=== PATIENT | female | born 1985 | race Caucasian/White ===

== ENCOUNTER 2016-12-12 06:24 | Inpatient (IN) | payer OTHER ==
[~2016-12-12] VITALS: Ht 154.9 cm; Wt 75.7 kg
[2016-12-12] VITALS (52 sets, daily range): BP systolic 93–162; BP diastolic 41–135; PULSE 50–138; RESP 18; TEMP 97.2–98.8
[~2016-12-12 06:24] MED LIST: CEPH-459 PO; PREN1TAB20 PO
[2016-12-12] MEDS ORDERED: LACTATED RINGER'S 1000 ML INJ 1,000 ML IV SCH (06:51)
[2016-12-12] MEDS ORDERED: LACTATED RINGER'S 1000 ML INJ 1,000 ML IV PRN (06:51)
[2016-12-12] MEDS ORDERED: METHYLERGONOVINE MALEATE 0.2 MG/ML VIAL ONE (06:58)
[2016-12-12] MEDS ORDERED: LIDOCAINE HCL 1% 50 ML VIAL I-DERMAL PRN (07:00)
[2016-12-12] MEDS ORDERED: LIDOCAINE HCL 1% 50 ML VIAL INFIL PRN (07:00)
[2016-12-12] MEDS ORDERED: ONDANSETRON HCL 4 MG/2 ML VIAL IV PRN (07:00)
[2016-12-12] MEDS ORDERED: OXYTOCIN 30 UNITS-500ML PREMIX 500 ML IV ONE (07:00)
[2016-12-12] MEDS ORDERED: SODIUM CHLORID 0.9% 500 ML INJ 500 ML IV PRN (07:00)
[2016-12-12] MEDS ORDERED: CITRIC ACID-SODIUM CITRATE LIQ 30 ML UDC PO SCH (07:00)
[2016-12-12] MEDS ORDERED: MINERAL OIL 10 ML VIAL TOPICAL PRN (07:00)
--- NOTE | 2016-12-12 07:00 | PD ---
HPI Chief Complaint Contractions. Date Seen: Dec 12, 2016 (Lisa Bain MD R2) Travel History International Travel<30 Days: No Contact w/Intl Traveler<30Days: No (Lisa Bain MD R2) History of Present Illness HPI Patient is a 31-year-old at 38-1/7 weeks gestation who presents today for contractions. Contractions started about 11:00 last night and became progressively more frequent and strong. At 4 this morning, the contractions were 24 minutes apart. She also noted some vaginal bleeding. She denies any gush or leaking of fluid. No other vaginal discharge. Positive movement. No complications during . (Lisa Bain MD R2) History Past Medical History Medical History: Denies Significant Hx (Lisa Bain MD R2) Obstetric History Obstetric History s/p term x 2, 2007 delivery complicated by shoulder dystocia, 2010 delivery complicated by hemorrhage (Lisa Bain MD R2) Past Surgical History Surgical History: No Previous Surgery (Lisa Bain MD R2) Family History Family History: Negative (Lisa Bain MD R2) Social History Alcohol Use: No Tobacco Use: No Substance Abuse: No (Lisa Bain MD R2) Allergies-Medications (Allergen,Severity, Reaction): Coded Allergies: Amoxicillin (Verified Allergy, Severe, Rash, 12/06/16) Bactrim (Verified Allergy, Severe, LIPS SWELL AND HIVES, 12/06/16) Penicillin (Verified Allergy, Severe, RASH, 12/06/16) Home Meds Reported Medications Vit W/ Ferrous Fumara ( Multi +Dha 27-0.8-228 mg)1 Cap Cap1 Tab PO DAILY 12/12/16 Discontinued Scripts Cephalexin (Keflex)250 Mg [id number] Mg PO Q6H #28 CAP Ref 0 Prov:[place] ReneeP 12/06/16 W/O Vit A W/ Fe Carbonyl (Citranatal Rx)27-1 Mg Tab1 Tab PO DAILY #30 TAB Ref 11 Prov:[place] ReneeP 05/26/16 Cephalexin (Keflex)500 Mg [id number] Mg PO Q12H #14 CAP Ref 0 Prov:Sonam Taylor CNM ESTATE PLANNING COUNSELOR 11/24/16 Review of Systems Except as stated in HPI: all other systems reviewed are Neg General / Constitutional: No: Fever, Chills Eyes: No: Blurred Vision, Visual changes HENT: No: Headaches Cardiovascular: No: Chest Pain or Discomfort Respiratory: No: Short of Breath Gastrointestinal: No: Nausea, Abdominal Pain Genitourinary: Pelvic Pain, Vaginal Bleeding, No: Discharge Musculoskeletal: No: Edema Neurologic: No: Headache Psychiatric: No: Substance Abuse (Lisa Bain MD R2) Physical Exam Narrative GENERAL: Well-nourished, well-developed patient. SKIN: Warm and dry. HEAD: Normocephalic and atraumatic. EYES: No scleral icterus. No injection or drainage. ENT: No nasal drainage noted. Mucous membranes pink. Airway patent. NECK: Supple, trachea midline. No JVD. CARDIOVASCULAR: Regular rate and rhythm without murmurs, gallops, or rubs. RESPIRATORY: Breath sounds equal bilaterally. No accessory muscle use. ABDOMEN/GI: Abdomen soft, non-tender, bowel sounds present, no rebound, no guarding Gravid to 38 weeks size GENITOURINARY: External Genitalia: intact and normal in appearance BUS glands: normal Cervix: midposition Dilatation: 7 Effacement: 90 Station: -1 Presentation: vertex Membranes: bulging Uterine Contractions: q2-3min FHT's: Category: I Baseline: 150 Reactive:+ Variability: moderate Decels: none EXTREMITIES: No cyanosis or edema. BACK: Nontender without obvious deformity. No CVA tenderness. NEUROLOGICAL: Awake and alert. Motor and sensory grossly within normal limits. Normal speech. (Lisa Bain MD R2) Data Data Vital Signs Reviewed: Yes Orders Ob (2e) Additional Admit Info (12/12/16 06:51) Vital Signs (Adult) .ON ADMISSION (12/12/16 06:51) ^ Labor Status (12/12/16 06:51) ^ Non Stress Test (12/12/16 06:51) ^ Hydration (12/12/16 06:51) (Lisa Bain MD R2) MDM Medical Record Reviewed: Yes Narrative Course / MDM 31 year old at 38-1/7 weeks gestation. 1. IUP- Category I tracing, reassuring. 2. Admit for labor- patient with history of shoulder dystocia and hemorrhage. 3. Patient desires epidural 4. GBS negative dw Dr. Saldana (Lisa Bain MD R2) Addendum Remarks I rounded on the patient. I rounded with the resident. I reviewed the resident' s assessment and plan of care for this patient. I am in agreement with the plan of care for this patient. (Triny Orellana MD) Lisa Bain MD R2 Dec 12, 2016 06:59 Triny Orellana MD Dec 12, 2016 07:52
[2016-12-12] MEDS ORDERED: SODIUM CHLOR 0.9% 1000 ML INJ 1,000 ML IV PRN (07:11)
[2016-12-12] MEDS ORDERED: fentaNYL 2MCG-BUPIV 0.125% INJ 100 ML ONE (07:13)
[2016-12-12] MEDS ORDERED: PRENCAP10 PO (07:22)
[2016-12-12 07:23] LABS: AUTOMATED NEUTROPHIL # 9.1 TH/MM3 (1.8-7.7); BASOPHIL % 0.2 % (0.0-2.0); EOSINOPHIL # 0.1 TH/MM3 (0-0.4); EOSINOPHIL % 0.6 % (0.0-4.0); HEMATOCRIT 35.9 % (35.0-46.0); HEMO FLAGS DIFF FINAL; LYMPH % 13.5 % (9.0-44.0); LYMPHOCYTE # 1.6 TH/MM3 (1.0-4.8); MEAN CELL VOLUME 83.2 FL (80.0-100.0); MEAN CORPUSCULAR HEMOGLOBIN 28.4 PG (27.0-34.0); MEAN CORPUSCULAR HGB CONC 34.2 % (32.0-36.0); MONO % 6.5 % (0.0-8.0); NEUT % 79.2 % (16.0-70.0); PLATELET COUNT 171 TH/MM3 (150-450); RED BLOOD COUNT 4.32 MIL/MM3 (4.00-5.30); WHITE BLOOD COUNT 11.5 TH/MM3 (4.0-11.0)
[2016-12-12 08:18] LABS: BLOOD, URINE NEG (NEG); GLUCOSE,URINE NEG (NEG); KETONE, URINE NEG (NEG); NITRITE,URINE NEG (NEG); URINE COLOR YELLOW (YELLW/STRAW)
[2016-12-12 08:29] LABS: BACTERIA, URINE RARE /hpf; COMMENT (UR) CULT NOT INDICATED; CULTURE IF INDICATED CULT NOT INDICATED; SQUAMOUS EPITHELIAL CELL URINE 0-5 /hpf (0-5)
[2016-12-12] MEDS ORDERED: ACETAMINOPHEN 325 MG TAB PO PRN ×2 (09:15→11:45)
[2016-12-12] MEDS ORDERED: fentaNYL 2MCG-BUPIV 0.125% 100 ML EPIDURAL SCH (09:30)
[2016-12-12] MEDS ORDERED: NO SYSTEM NARCOTICS PRN (09:30)
[2016-12-12] MEDS ORDERED: ePHEDrine/NS 25 MG/5 ML SYR IV PRN (09:30)
[2016-12-12] MEDS ORDERED: DO NOT ADMINISTER ANTICOAGULANTS PRN (09:30)
--- NOTE | 2016-12-12 09:40 | PD.LABORPN ---
Subjective Subjective Patient is resting comfortably in bed with epidural in place. Objective Vital Signs Vital Signs Date Time Temp Pulse Resp B/P Pulse Ox O2 Delivery O2 Flow Rate FiO2 12/12/16 09:15 56 93/57 12/12/16 09:08 63 18 95/51 12/12/16 09:05 82 12/12/16 09:01 76 12/12/16 08:46 59 116/65 12/12/16 08:30 65 115/64 12/12/16 08:16 65 114/65 12/12/16 08:06 66 119/66 12/12/16 08:01 70 126/68 12/12/16 07:56 66 118/67 12/12/16 07:54 59 128/70 12/12/16 07:52 59 132/103 12/12/16 07:50 71 12/12/16 07:46 98 140/74 12/12/16 07:45 79 12/12/16 07:42 71 12/12/16 07:40 88 12/12/16 07:36 115 111/91 12/12/16 07:35 72 12/12/16 07:31 65 95/80 12/12/16 07:30 76 12/12/16 07:28 82 123/67 12/12/16 07:26 129 162/135 12/12/16 07:25 89 12/12/16 07:21 70 125/95 12/12/16 07:20 66 12/12/16 07:17 65 136/86 12/12/16 07:15 68 12/12/16 07:13 18 12/12/16 07:05 59 119/66 Objective Pelvic Exam: Cervix: midposition Dilatation: 9 Effacement: 100 Station: -1 Presentation: vertex Membranes: bulging Uterine Contractions: q2-4min FHT's: Category: I Baseline: 142 Reactive: + Variability: moderate Decels: none Assessment/Plan Assessment and Plan 31 year old at 38-1/7 weeks gestation. 1. IUP- Category I tracing, reassuring. 2. Labor- patient with history of shoulder dystocia and hemorrhage. Labor progressing, cervical change noted. 3. Epidural for pain control. 4. GBS negative. Lisa Monteiro Dr., MD R2 Dec 12, 2016 09:40
--- NOTE | 2016-12-12 11:44 | PD.OB.DELI ---
Delivery Date: Dec 12, 2016 Anesthesia: Epidural Episiotomy: None Vaginal Delivery: Normal Presentation: Occiput anterior Nuchal Cord: x1 Delayed cord clamping (45 sec): Yes : Male One Minute : 8 Five Minute : 8 Weight: 3890g Placenta: Spontaneous delivery, Intact, 3 vessel cord Laceration: No lacerations Additional Information EBL 250mL Supervised by Dr. Barnes (Lisa Bain MD R2) Attestation I was present and directly supervised the delivery procedure which was performed without complications by Dr. Bain, PGY2. (Tete Barnes MD) Lisa Bain MD R2 Dec 12, 2016 11:44 Tete Barnes MD Dec 12, 2016 11:58
[2016-12-12] MEDS ORDERED: ALUMINUM/MAGNESIUM/SIMETH 30 ML CUP PO PRN (11:45)
[2016-12-12] MEDS ORDERED: ZOLPIDEM TARTRATE 5 MG TAB PO PRN (11:45)
[2016-12-12] MEDS ORDERED: WITCH HAZEL 50%/GLYCERIN 12.5% 40 PAD JAR TOPICAL PRN (11:45)
[2016-12-12] MEDS ORDERED: ONDANSETRON ODT 4 MG TAB PO PRN (11:45)
[2016-12-12] MEDS ORDERED: BENZOCAINE 20% TOPICAL SPRAY 60 ML CAN TOPICAL PRN (11:45)
[2016-12-12] MEDS ORDERED: SODIUM CHLORIDE 0.9% FLUSH 10 ML FLUSH IV FLUSH PRN (11:45)
[2016-12-12] MEDS: IBUPROFEN 600 MG TAB PO PRN ×2 (12:59→20:34)
[2016-12-12] MEDS: oxyCODONE/ACETAMINOPHEN 5 MG/325 MG TAB PO PRN ×2 (15:58→20:34)
[2016-12-12] MEDS ORDERED: DIPHTH/TETANUS/ACEL PERTUSSIS (BOOSTER) 0.5 ML VIAL/PFS IM ONE (16:00)
[2016-12-12] MEDS ORDERED: MEASLES, MUMPS, RUBELLA VACCINE 0.5 ML VIAL SQ ONE (16:00)
[2016-12-12] MEDS: DOCUSATE SODIUM 50 MG/SENNA 8.6 MG TAB PO PRN (20:35)
[2016-12-12] MEDS ORDERED: SODIUM CHLORIDE 0.9% FLUSH 10 ML FLUSH IV FLUSH SCH (21:00)
[2016-12-13] MEDS: oxyCODONE/ACETAMINOPHEN 5 MG/325 MG TAB PO PRN ×5 (00:39→19:56)
[2016-12-13] MEDS: IBUPROFEN 600 MG TAB PO PRN ×4 (04:29→22:28)
--- NOTE | 2016-12-13 06:56 | HHI.OB ---
Subjective Post Day: 1 Remarks day # 1, delivered at 1121 am on 12/12. AFVSS overnight. Decreased lochia, had a clot passed early in the day yesterday and none since. Denies dysuria. No breast tenderness. her son without difficulty. Wants to go home today-states she has two kids at home she would like to get to. Appetite good. No nausea or vomiting. Positive flatus/bowel movement. Ambulating well. Denies calf pain or shortness of breath. Otherwise, she is doing well this morning and has no other complaints. (Ashley Gill MD R1) Objective Vitals/I&O Vital Signs Date Time Temp Pulse Resp B/P Pulse Ox O2 Delivery O2 Flow Rate FiO2 12/12/16 13:30 98.8 61 18 116/67 12/12/16 13:00 98.2 12/12/16 12:45 73 110/77 12/12/16 12:36 18 12/12/16 12:34 98/58 12/12/16 12:32 82 12/12/16 12:23 18 12/12/16 12:15 68 95/80 12/12/16 12:15 61 110/73 12/12/16 12:12 18 12/12/16 12:01 82 95/80 12/12/16 11:57 68 112/75 12/12/16 11:53 97.2 12/12/16 11:53 98.4 12/12/16 11:48 18 12/12/16 11:32 138 142/97 12/12/16 11:17 131 111/41 12/12/16 11:13 57 113/48 12/12/16 11:02 59 113/41 12/12/16 10:46 50 98/56 12/12/16 10:31 70 96/72 12/12/16 10:16 63 109/67 12/12/16 10:00 57 108/64 12/12/16 09:45 54 107/63 12/12/16 09:31 60 111/71 12/12/16 09:15 56 93/57 12/12/16 09:08 63 18 95/51 12/12/16 09:05 82 12/12/16 09:01 76 12/12/16 08:46 59 116/65 12/12/16 08:30 65 115/64 12/12/16 08:16 65 114/65 12/12/16 08:06 66 119/66 12/12/16 08:01 70 126/68 12/12/16 07:56 66 118/67 12/12/16 07:54 59 128/70 12/12/16 07:52 59 132/103 12/12/16 07:50 71 12/12/16 07:46 98 140/74 12/12/16 07:45 79 12/12/16 07:42 71 12/12/16 07:40 88 12/12/16 07:36 115 111/91 12/12/16 07:35 72 12/12/16 07:31 65 95/80 12/12/16 07:30 76 12/12/16 07:28 82 123/67 12/12/16 07:26 129 162/135 12/12/16 07:25 89 12/12/16 07:21 70 125/95 12/12/16 07:20 66 12/12/16 07:17 65 136/86 12/12/16 07:15 68 12/12/16 07:13 18 12/12/16 07:05 59 119/66 Objective Remarks GENERAL: Well-nourished, well-developed female. CARDIOVASCULAR: Regular rate and rhythm without murmurs, gallops, or rubs. RESPIRATORY: Breath sounds equal bilaterally. No accessory muscle use. ABDOMEN/GI: Abdomen soft, mildly tender to palpation at lower abdomen. Fundus: Firm, non-tender at umbilicus. GENITOURINARY: Light to moderate bleeding. EXTREMITIES: No cyanosis or edema, non-tender, without signs of DVT. Medications and IVs Current Medications Medications (Trade) Dose Ordered Sig/Roshni Route Start Time Stop Time Status Last Admin (NS Flush) 2 ml BID IV FLUSH 12/12/16 21:00 (NS Flush) 2 ml UNSCH PRN IV FLUSH 12/12/16 11:45 (Tylenol) 650 mg Q4H PRN PO 12/12/16 11:45 (Motrin) 600 mg Q6H PRN PO 12/12/16 11:45 12/13/16 04:29 (Percocet 5-325 Mg) 1 tab Q4H PRN PO 12/12/16 11:45 12/13/16 04:29 (Percocet 5-325 Mg) 2 tab Q4H PRN PO 12/12/16 11:45 (Americaine 20% Top Spr) 1 spray Q4H PRN TOPICAL 12/12/16 11:45 (Tucks Pads) 1 applic QID PRN TOPICAL 12/12/16 11:45 (Ca-Colace) 2 tab Q12H PRN PO 12/12/16 11:45 12/12/16 20:35 (Ambien) 5 mg HS PRN PO 12/12/16 11:45 (Mag-Al Plus Susp Liq) 15 ml Q8H PRN PO 12/12/16 11:45 (Zofran Odt) 4 mg Q6H PRN PO 12/12/16 11:45 (Ashley Gill MD R1) Assessment/Plan Problem List: (1) Intrauterine normal (2) Term delivered vaginally, current hospitalization Assessment and Plan 31 y/o female who is PPD]# 1 s/p . -Continue routine care. -Percocet and Motrin PRN pain. -Encouraged OOB. Advised pelvic rest for 6 wks. -Re: ctrl, she is undecided. -Anticipate discharge tomorrow. JOANNA Barnes (Ashley Gill MD R1) Attending Attestation The exam, history, and the medical decision-making described in the above note were completed with the assistance of the resident provider. I reviewed and agree with the findings presented. I attest that I had a [id number] encounter with the patient on the same day, and personally performed and documented my assessment and findings in the medical record. (Tete Barnes MD) Ashley Gill MD R1 Dec 13, 2016 06:56 Tete Barnes MD Dec 13, 2016 08:30
[2016-12-13] MEDS: DOCUSATE SODIUM 50 MG/SENNA 8.6 MG TAB PO PRN (10:00)
[2016-12-13 19:20] VITALS: BP 126/67; PULSE 78; RESP 20; TEMP 97.9
[2016-12-13 21:20] VITALS: BP 126/67; PULSE 78; RESP 20; TEMP 97.9
[2016-12-14] MEDS: oxyCODONE/ACETAMINOPHEN 5 MG/325 MG TAB PO PRN ×3 (04:44→09:52)
[2016-12-14] MEDS: IBUPROFEN 600 MG TAB PO PRN ×2 (04:44→09:52)
--- NOTE | 2016-12-14 06:58 | HHI.OB ---
Subjective Post Day: 2 Remarks day # 2, delivered at 1121 am on 12/12. AFVSS overnight. She has mild pain in the lower abdomen with walking. Decreased lochia. Denies dysuria. No breast tenderness. her son without difficulty. Wants to go home today but not without baby. Appetite good. No nausea or vomiting. Positive flatus/bowel movement. Ambulating well. Denies calf pain or shortness of breath. Otherwise, she is doing well this morning and has no other complaints. Objective Vitals/I&O Vital Signs Date Time Temp Pulse Resp B/P Pulse Ox O2 Delivery O2 Flow Rate FiO2 12/13/16 21:20 97.9 78 20 126/67 12/13/16 19:20 78 20 126/67 12/13/16 19:20 97.9 Objective Remarks GENERAL: Well-nourished, well-developed female. CARDIOVASCULAR: Regular rate and rhythm without murmurs, gallops, or rubs. RESPIRATORY: Breath sounds equal bilaterally. No accessory muscle use. ABDOMEN/GI: Abdomen soft, not tender to palpation at lower abdomen. Fundus: Firm, non-tender below umbilicus. GENITOURINARY: Light to moderate bleeding. EXTREMITIES: No cyanosis or edema, non-tender, without signs of DVT. Medications and IVs Current Medications Medications (Trade) Dose Ordered Sig/Roshni Route Start Time Stop Time Status Last Admin (NS Flush) 2 ml BID IV FLUSH 12/12/16 21:00 (NS Flush) 2 ml UNSCH PRN IV FLUSH 12/12/16 11:45 (Tylenol) 650 mg Q4H PRN PO 12/12/16 11:45 (Motrin) 600 mg Q6H PRN PO 12/12/16 11:45 12/14/16 04:44 (Percocet 5-325 Mg) 1 tab Q4H PRN PO 12/12/16 11:45 12/13/16 04:29 (Percocet 5-325 Mg) 2 tab Q4H PRN PO 12/12/16 11:45 12/14/16 04:44 (Americaine 20% Top Spr) 1 spray Q4H PRN TOPICAL 12/12/16 11:45 (Tucks Pads) 1 applic QID PRN TOPICAL 12/12/16 11:45 (Ca-Colace) 2 tab Q12H PRN PO 12/12/16 11:45 12/13/16 10:00 (Ambien) 5 mg HS PRN PO 12/12/16 11:45 (Mag-Al Plus Susp Liq) 15 ml Q8H PRN PO 12/12/16 11:45 (Zofran Odt) 4 mg Q6H PRN PO 12/12/16 11:45 Assessment/Plan Problem List: (1) Intrauterine normal (2) Term delivered vaginally, current hospitalization Assessment and Plan 31 y/o female who is PPD# 2 s/p . -Continue routine care. -Tylenol and Motrin PRN pain. -Encouraged OOB. Advised pelvic rest for 6 wks. -Re: ctrl, she is undecided. -Anticipate discharge tomorrow. JOANNA Kearney Discharge Planning Discharge today Ashley Gill MD R1 Dec 14, 2016 06:58
[2016-12-14] MEDS ORDERED: IBUP-232 PO (06:59)
[2016-12-14] MEDS ORDERED: ACET1TAB86 PO (06:59)
--- NOTE | 2016-12-14 07:00 | HHI.DCPOC ---
Discharge Care Plan Diagnosis: (1) Term delivered vaginally, current hospitalization (2) Intrauterine normal Report Symptoms to Your Doctor -Temperature above 100.5 degrees -Redness, of incision or excessive or foul smelling drainage -Unusual pain or calf pain -Increased vaginal bleeding -Painful or difficulty urinating -Feelings of extreme sadness or anxiety after 2 weeks Goals to Promote Your Health * To prevent worsening of your condition and complications * To maintain your health at the optimal level Directions to Meet Your Goals Take your medications as prescribed Follow your dietary instruction Follow activity as directed Ensure plenty of rest for recovery Drink fluids for hydration Keep your appointments as scheduled Take your immunizations and boosters as scheduled If your symptoms worsen call your PCP, if no PCP go to Urgent Care Center or Emergency Room Smoking is Dangerous to Your Health. Avoid second hand smoke Call the 24-hour crisis hotline for domestic abuse at Ashley Gill MD R1 Dec 14, 2016 07:00
[2016-12-14 08:00] VITALS: BP 122/68; PULSE 74; RESP 18; TEMP 98.4
[2016-12-14] MEDS: DOCUSATE SODIUM 50 MG/SENNA 8.6 MG TAB PO PRN (09:52)
[2016-12-20] MEDS ORDERED: AUGM500T7 PO (16:35)
[2016-12-20] MEDS ORDERED: IBUP800T23 PO (16:43)
== END 2016-12-14 13:32 | disposition home or self-care (01) | DRG 775 ==
LOC: HOBED 06:24 → H2EB 06:53 → H1EA 13:09
PROVIDERS: ADMIT Obstetrics & Gynecology; ATTEND Obstetrics & Gynecology
PROC: 10E0XZZ Delivery of Products of Conception, External Approach (ICD-10-PCS; principal; 2016-12-12)
DX: O69.81X0 Labor and delivery complicated by cord around neck, without compression, not applicable or unspecified (principal); Z37.0 Single live birth; Z3A.38 38 weeks gestation of pregnancy
CPT/HCPCS: 81001; 85025; 90715; 99285; J2210; J7120

== ENCOUNTER 2017-09-11 19:34 | Emergency (ER) | payer OTHER ==
[~2017-09-11] VITALS: Ht 157.5 cm; Wt 77.7 kg
[~2017-09-11 19:34] MED LIST changes: +AZIT500T2 PO; -CEPH-459 PO; +PREN1CAP17 PO; -PREN1TAB20 PO
[2017-09-11 19:38] VITALS: BP 126/58; PULSE 87; RESP 18; TEMP 97.8; O2SAT 97
[2017-09-11] MEDS ORDERED: FOLI400T PO (20:50)
[2017-09-11] MEDS ORDERED: CARB6.5S5 LEFT EAR (21:48)
[2017-09-11] MEDS ORDERED: AZIT250T3 PO (21:48)
--- NOTE | 2017-09-11 22:09 | PD ---
HPI Chief Complaint: Cold / Flu Symptoms Time Seen by Provider: 20:43 Travel History International Travel<30 days: No Contact w/Intl Traveler<30days: No Traveled to known affect area: No History of Present Illness HPI 32-year-old female that presents to the ED for evaluation of cold like symptoms. Per patient she is about 26 weeks . She has had no issues with the parents and she feels the baby move. Per patient she has no vaginal discharge. Per patient isn't having sore throat and congestion and body aches. She's had chills. Low-grade fever per patient. No urinary symptoms. No back pain. Has not taken anything for this. Discomfort for patient is 4 out of 10 mainly on the body. Again no problems with per patient. PFSH Past Medical History Anemia: Yes Blood Disorders: No Depression: Yes Cancer: No Cardiovascular Problems: No Chemotherapy: No Diminished Hearing: No Endocrine: No Gastrointestinal Disorders: No Genitourinary: No Immune Disorder: No Musculoskeletal: Yes (Chronic back & neck pain) Psychiatric: No Respiratory: No Immunizations Current: Yes Radiation Therapy: No Seizures: Yes (R/T cocaine use) Tetanus Vaccination: < 5 Years Influenza Vaccination: No ?: LMP: 09-17 Menopausal: No : 3 Para: 2 : 1 Past Surgical History Surgical History: No Previous Surgery AICD: No Joint Replacement: No Pacemaker: No Other Surgery: No Social History Alcohol Use: No Tobacco Use: No Substance Use: No Allergies-Medications (Allergen,Severity, Reaction): Coded Allergies: amoxicillin (Unverified Allergy, Severe, Rash, 09/11/17) penicillin G (Unverified Allergy, Severe, RASH, 09/11/17) sulfamethoxazole (Unverified Allergy, Severe, LIPS SWELL AND HIVES, 09/11/17 ) trimethoprim (Unverified Allergy, Severe, LIPS SWELL AND HIVES, 09/11/17) Reported Meds & Prescriptions Reported Meds & Active Scripts Active Debrox Otic Drops (Carbamide Peroxide Otic Drops) 6.5% Soln 5-10 Drop LEFT EAR BID PRN up to 4 days. Azithromycin 250 Mg Tab 250 Mg PO DIRECTED Take 2 tabs (500 mg) on day 1 then 1 tab daily x 4 days. Prenate Pixie 10-0.6-0.4-200 mg ( W/O A W/ Fe Asparto G) 10 Mg Iron-1 Mg -200 Mg Cap 1 Cap PO DAILY Reported Folic Acid 0.4 Mg Tab 400 Mcg PO DAILY Physical Exam Narrative GENERAL: Well-nourished, well-developed patient in no apparent distress. SKIN: Warm and dry. HEAD: Atraumatic. Normocephalic. EYES: Pupils equal and round reactive to light and accommodation. No scleral icterus. No injection or drainage. ENT: No nasal bleeding or discharge. Mucous membranes pink and moist. TMs are clear with no sign of infection or perforation. No mastoid tenderness. Ear canals are intact bilaterally. No lymphadenopathy. Nostril mucosa is red and moist with clear mucus noted. No sinus tenderness to palpation noted. Tonsils are not enlarged or swollen. No ulvua Deviation. Tongue is midline. NECK: Trachea midline. No JVD. No meningeal signs noted CARDIOVASCULAR: Regular rate and rhythm. RESPIRATORY: No accessory muscle use. Clear to auscultation. Breath sounds equal bilaterally. GASTROINTESTINAL: Abdomen soft, non-tender, nondistended. Hepatic and splenic margins not palpable. MUSCULOSKELETAL: Extremities without clubbing, cyanosis, or edema. No obvious deformities. NEUROLOGICAL: Awake and alert. No obvious cranial nerve deficits. Motor grossly within normal limits. Five out of 5 muscle strength in the arms and legs. Normal speech. PSYCHIATRIC: Appropriate mood and affect; insight and judgment normal. Data Data Last Documented VS Vital Signs Date Time Temp Pulse Resp B/P (MAP) Pulse Ox O2 Delivery O2 Flow Rate FiO2 09/11/17 19:38 97.8 87 18 126/58 (80) 97 Orders Orders Ear Irrigation (09/11/17 20:53) Influenzae A/B Antigen (09/11/17 20:53) [facility] Medical Decision Making Medical Screen Exam Complete: Yes Emergency Medical Condition: Yes Medical Record Reviewed: Yes Interpretation(s) flu negative Differential Diagnosis Influenza versus viral illness versus URI Narrative Course 32-year-old female that presents to the ED for evaluation of cold-like symptoms. Patient was properly examined and was found to have signs and symptoms consistent likely cold-like symptoms. We'll check for flu. Flu was negative. Patient was reassured. We tried ear irrigation with minimal success. At this time I recommend trial of Debrox. Patient given prescription for pseudomonas to cover for atrial infection. Told to follow with PCP. OTC meds as needed. She was told that she needs to call her CONTRACTS REPRESENTATIVE for further info as to what medication she can take. See ED worsening symptoms. Diagnosis Primary Impression: URI (upper respiratory infection) Qualified Codes: J06.9 - Acute upper respiratory infection, unspecified Additional Impression: Impacted ear wax Qualified Codes: H61.22 - Impacted cerumen, left ear Patient Instructions: General Instructions Departure Forms: Tests/Procedures Additional Instructions: Tylenol for pain and fever. Cough drops for cough as needed. Drink plenty of fluids. Follow-up with PCP. See ED for worsening symptoms. Med/Other Pt SpecificInfo: Prescription(s) given Scripts Carbamide Peroxide Otic Drops (Debrox Otic Drops) 6.5% Soln 5-10 DROP LEFT EAR BID Y for Ear Wax Removal, #1 BOTTLE 0 Refills up to 4 days. Prov: Sushil Carson MD 09/11/17 Azithromycin (Azithromycin) 250 Mg Tab 250 MG PO DIRECTED for Infection, #6 TAB 0 Refills Take 2 tabs (500 mg) on day 1 then 1 tab daily x 4 days. Prov: Sushil Carson MD 09/11/17 Disposition: 01 DISCHARGE HOME Condition: Julius Vásquez Sep 11, 2017 22:09
== END 2017-09-11 22:19 | disposition home or self-care (01) ==
LOC: PHED 19:34 → PHEFT 22:19
DX: O26.892 Other specified pregnancy related conditions, second trimester (principal); J06.9 Acute upper respiratory infection, unspecified; H61.22 Impacted cerumen, left ear; O99.012 Anemia complicating pregnancy, second trimester; D64.9 Anemia, unspecified; R56.9 Unspecified convulsions; O99.342 Other mental disorders complicating pregnancy, second trimester; F32.9 Major depressive disorder, single episode, unspecified; Z3A.26 26 weeks gestation of pregnancy
CPT/HCPCS: 87804; 99283

== ENCOUNTER 2017-12-09 03:09 | Inpatient (IN) | payer OTHER ==
[~2017-12-09] VITALS: Ht 154.9 cm; Wt 84.0 kg
[~2017-12-09 03:09] MED LIST changes: +AZIT250T3 PO; -AZIT500T2 PO; +CARB6.5S5 LEFT EAR; +FOLI400T PO
--- NOTE | 2017-12-09 03:35 | PD ---
HPI Chief Complaint Spotting Date Seen: Dec 09, 2017 Time Seen: 03:31 Travel History International Travel<30 Days: No Contact w/Intl Traveler<30Days: No Known Affected Area: No History of Present Illness HPI 32-year-old 4 para 3 at 36 weeks 3 days gestation who reports persistent spotting since her examination in the clinic on Monday when she was told her membranes were stripped. She thinks she might be having mild contractions. She denies leakage of fluid. No other abdominal pain. She denies trauma. No recent intercourse. History Past Medical History Medical History: Denies Significant Hx Obstetric History Obstetric History 3 term vaginal deliveries Current care with care for women Past Surgical History Surgical History: No Previous Surgery Family History Family History: Negative Social History Alcohol Use: No Tobacco Use: No Substance Abuse: No Allergies-Medications (Allergen,Severity, Reaction): Coded Allergies: amoxicillin (Unverified Allergy, Severe, Rash, 09/11/17) penicillin G (Unverified Allergy, Severe, RASH, 09/11/17) sulfamethoxazole (Unverified Allergy, Severe, LIPS SWELL AND HIVES, 09/11/17 ) trimethoprim (Unverified Allergy, Severe, LIPS SWELL AND HIVES, 09/11/17) Home Meds Active Scripts Carbamide Peroxide Otic Drops (Debrox Otic Drops) 6.5% Soln, 5-10 DROP LEFT EAR BID Y for Ear Wax Removal, #1 BOTTLE 0 Refills up to 4 days. Prov:Sushil Carson MD 09/11/17 Azithromycin (Azithromycin) 250 Mg Tab, 250 MG PO DIRECTED for Infection, #6 TAB 0 Refills Take 2 tabs (500 mg) on day 1 then 1 tab daily x 4 days. Prov:Sushil Carson MD 09/11/17 W/O A W/ Fe Asparto G (Prenate Pixie 10-0.6-0.4-200 mg) 10 Mg Iron-1 Mg -200 Mg Cap, 1 CAP PO DAILY for , #90 CAP 2 Refills Prov:Holly Means CNM MANAGED CARE MANAGER 07/26/17 Reported Medications Folic Acid (Folic Acid) 0.4 Mg Tab, 400 MCG PO DAILY for Nutritional Supplement , TAB 0 Refills 09/11/17 Review of Systems Except as stated in HPI: all other systems reviewed are Neg Physical Exam Narrative GENERAL: Well-nourished, well-developed patient. SKIN: Warm and dry. HEAD: Normocephalic and atraumatic. EYES: No scleral icterus. No injection or drainage. ENT: No nasal drainage noted. Mucous membranes pink. Airway patent. NECK: Supple, trachea midline. No JVD. CARDIOVASCULAR: Regular rate and rhythm without murmurs, gallops, or rubs. RESPIRATORY: Breath sounds equal bilaterally. No accessory muscle use. ABDOMEN/GI: Abdomen soft, non-tender, bowel sounds present, no rebound, no guarding Gravid to [-] weeks size Fundal Height: [-] GENITOURINARY: External Genitalia: intact and normal in appearance BUS glands: [Negative-] Cervix: [-] Dilatation: [3-] Effacement: [70-] Station: [--3] Presentation: [-Vertex] Membranes: [intact] Uterine Contractions: [-Mild irregular] FHT's: Category: [-] Baseline: [-] Reactive: [-] Variability: [-] Decels: [-] EXTREMITIES: No cyanosis or edema. BACK: Nontender without obvious deformity. No CVA tenderness. NEUROLOGICAL: Awake and alert. Motor and sensory grossly within normal limits. Five out of 5 muscle strength in all muscle groups. Normal speech. Data Data Vital Signs Reviewed: Yes MDM Medical Record Reviewed: Yes Narrative Course / MDM Assessment: Spotting after examination with membrane stripping, early labor Plan: Admit for labor management. Diagnosis Diagnosis: Primary Impression: 36 weeks gestation of Mikel Clark MD Dec 09, 2017 03:35
[2017-12-09] MEDS ORDERED: LACTATED RINGER'S 1000 ML INJ 1,000 ML IV PRN (05:06)
[2017-12-09] MEDS ORDERED: LACTATED RINGER'S 1000 ML INJ 1,000 ML IV SCH (05:06)
--- NOTE | 2017-12-09 05:14 | HHI.HP ---
HPI Chief Complaint Spotting Date Seen: Dec 09, 2017 Time Seen: 04:50 (Niya Coello MD R1) Travel History International Travel<30 Days: No Contact w/Intl Traveler<30Days: No Known Affected Area: No (Niya Coello MD R1) History of Present Illness HPI Patient is a 32-year-old 4 para 3 at 36 weeks 3 days gestation who reports persistent spotting since her examination in the clinic ([facility] ) on Monday when she was told her membranes were stripped. She is experiencing regular contractions. She denies leakage of fluid. She endorses positive movement. She denies other abdominal pain. She denies trauma. She denies recent intercourse. Weeks Gestation: 36 Para: 3 : 4 (Niya Coello MD R1) History Past Medical History Medical History: Denies Significant Hx (Niya Coello MD R1) Obstetric History Obstetric History Three prior term vaginal deliveries; shoulder dystocia with baby #1, possible hemorrhage after baby #2. Current care with [facility]. She denies complications during this . (Niya Coello MD R1) Past Surgical History Surgical History: No Previous Surgery (Niya Coello MD R1) Family History Family History: Negative (Niya Coello MD) Social History Alcohol Use: No Tobacco Use: No Substance Abuse: No (Niya Coello MD R1) Allergies-Medications (Allergen,Severity, Reaction): Coded Allergies: amoxicillin (Unverified Allergy, Severe, Rash, 09/11/17) penicillin G (Unverified Allergy, Severe, RASH, 09/11/17) sulfamethoxazole (Unverified Allergy, Severe, LIPS SWELL AND HIVES, 09/11/17 ) trimethoprim (Unverified Allergy, Severe, LIPS SWELL AND HIVES, 09/11/17) Home Meds Active Scripts Carbamide Peroxide Otic Drops (Debrox Otic Drops) 6.5% Soln, 5-10 DROP LEFT EAR BID Y for Ear Wax Removal, #1 BOTTLE 0 Refills up to 4 days. Prov:Sushil Carson MD 09/11/17 Azithromycin (Azithromycin) 250 Mg Tab, 250 MG PO DIRECTED for Infection, #6 TAB 0 Refills Take 2 tabs (500 mg) on day 1 then 1 tab daily x 4 days. Prov:Sushil Carson MD 09/11/17 W/O A W/ Fe Asparto G (Prenate Pixie 10-0.6-0.4-200 mg) 10 Mg Iron-1 Mg -200 Mg Cap, 1 CAP PO DAILY for , #90 CAP 2 Refills Prov:Holly Means CN [employer] 07/26/17 Reported Medications Folic Acid (Folic Acid) 0.4 Mg Tab, 400 MCG PO DAILY for Nutritional Supplement , TAB 0 Refills 09/11/17 Review of Systems Except as stated in HPI: all other systems reviewed are Neg (Niya Coello MD R1) Physical Exam Narrative GENERAL: Well-nourished, well-developed patient. SKIN: Warm and dry. HEAD: Normocephalic and atraumatic. EYES: No scleral icterus. No injection or drainage. ENT: No nasal drainage noted. Mucous membranes pink. Airway patent. NECK: Supple, trachea midline. No JVD. CARDIOVASCULAR: Regular rate and rhythm without murmurs, gallops, or rubs. RESPIRATORY: Breath sounds equal bilaterally. No accessory muscle use. BREASTS: Bilateral exam showed no masses , no retractions, no nipple discharge. ABDOMEN/GI: Abdomen soft, non-tender, bowel sounds present, no rebound, no guarding Gravid to 36 weeks size GENITOURINARY: External Genitalia: intact and normal in appearance Dilatation: 4 cm Effacement: 90% Station: -3 Presentation: vertex Membranes: intact Uterine Contractions: q3-5min FHT's: Category: 1 Baseline: 150 Reactive: + Variability: moderate Decels: none EXTREMITIES: No cyanosis or edema. BACK: Nontender without obvious deformity. No CVA tenderness. NEUROLOGICAL: Awake and alert. Motor and sensory grossly within normal limits. Five out of 5 muscle strength in all muscle groups. Normal speech. (Niya Coello MD R1) Caprini VTE Risk Assessment Caprini VTE Risk Assessment: No/Low Risk (score <= 1) Caprini Risk Assessment Model Point Value = 1 Point Value = 2 Point Value = 3 Point Value = 5 Age 41-60 Minor surgery BMI > 25 kg/m2 Swollen legs Varicose veins or History of unexplained or recurrent spontaneous Oral contraceptives or hormone replacement Sepsis (< 1 month) Serious lung disease, including pneumonia (< 1 month) Abnormal pulmonary function Acute myocardial infarction Congestive heart failure (< 1 month) History of inflammatory bowel disease Medical patient at bed rest Age 61-74 Arthroscopic surgery Major open surgery (> 45 min) Laparoscopic surgery (> 45 min) Malignancy Confined to bed (> 72 hours) Immobilizing plaster cast Central venous access Age >= 75 History of VTE Family history of VTE Factor V Leiden Prothrombin [id number] Lupus anticoagulant Anticardiolipin antibodies Elevated serum homocysteine Heparin-induced thrombocytopenia Other congenital or acquired thrombophilia Stroke (< 1 month) Elective arthroplasty Hip, pelvis, or leg fracture Acute spinal cord injury (< 1 month) Prophylaxis Regimen Total Risk Factor Score Risk Level Prophylaxis Regimen 0-1 Low Early ambulation 2 Moderate Order ONE of the following: *Sequential Compression Device (SCD) *Heparin 5000 units SQ BID 3-4 Higher Order ONE of the following medications: *Heparin 5000 units SQ TID *Enoxaparin/Lovenox 40 mg SQ daily (WT < 150 kg, CrCl > 30 mL/min) *Enoxaparin/Lovenox 30 mg SQ daily (WT < 150 kg, CrCl > 10-29 mL/min) *Enoxaparin/Lovenox 30 mg SQ BID (WT < 150 kg, CrCl > 30 mL/min) AND/OR *Sequential Compression Device (SCD) 5 or more Highest Order ONE of the following medications: *Heparin 5000 units SQ TID (Preferred with Epidurals) *Enoxaparin/Lovenox 40 mg SQ daily (WT < 150 kg, CrCl > 30 mL/min) *Enoxaparin/Lovenox 30 mg SQ daily (WT < 150 kg, CrCl > 10-29 mL/min) *Enoxaparin/Lovenox 30 mg SQ BID (WT < 150 kg, CrCl > 30 mL/min) AND *Sequential Compression Device (SCD) (Niya Coello MD R1) Data Data Vital Signs Reviewed: Yes Orders Orders Ob (2e) Additional Admit Info (12/09/17 04:36) Group B Strep: Negative (Niya Coello MD R1) Assessment/Plan Assessment and Plan Patient is a 32-year-old 4 para 3 at 36 weeks 3 days gestation who reports persistent spotting since her examination in the clinic ([facility] ) on Monday when she was told her membranes were stripped. She is now experiencing regular contractions since arrival to OB triage. Patient with cervical change. She denies leakage of fluid. She endorses positive movement. Admission for active labor. IUP - Category I tracing. - Contractions q3-5 minutes on tocometer. - Cervix: 4/90/-3 - GBS negative - Continue expectant management (Niya Coello MD R1) Attending Attestation Patient seen and evaluated with resident under direct supervision, agree with assessment and plan. (Mikel Clark MD) Niya Coello MD R1 Dec 09, 2017 05:14 Mikel Clark MD Dec 09, 2017 08:25
[2017-12-09] MEDS ORDERED: MINERAL OIL 10 ML VIAL TOPICAL PRN (05:15)
[2017-12-09] MEDS ORDERED: SODIUM CHLORID 0.9% 500 ML INJ 500 ML IV PRN (05:15)
[2017-12-09] MEDS ORDERED: LIDOCAINE HCL 1% 50 ML VIAL INFIL PRN (05:15)
[2017-12-09] MEDS ORDERED: CITRIC ACID-SODIUM CITRATE LIQ 30 ML UDC PO SCH (05:15)
[2017-12-09] MEDS ORDERED: LIDOCAINE HCL 1% 50 ML VIAL I-DERMAL PRN (05:15)
[2017-12-09] MEDS ORDERED: OXYTOCIN 30 UNITS-500ML PREMIX 500 ML IV ONE (05:15)
[2017-12-09] MEDS ORDERED: SODIUM CHLOR 0.9% 1000 ML INJ 1,000 ML IV PRN (05:26)
[2017-12-09 05:45] LABS: AUTOMATED NEUTROPHIL # 10.1 TH/MM3 (1.8-7.7); BASOPHIL % 0.3 % (0.0-2.0); EOSINOPHIL # 0.1 TH/MM3 (0-0.4); EOSINOPHIL % 0.9 % (0.0-4.0); HEMATOCRIT 32.5 % (35.0-46.0); HEMOGLOBIN 11.1 GM/DL (11.6-15.3); LYMPH % 14.2 % (9.0-44.0); LYMPHOCYTE # 1.9 TH/MM3 (1.0-4.8); MEAN CELL VOLUME 85.1 FL (80.0-100.0); MEAN CORPUSCULAR HGB CONC 34.1 % (32.0-36.0); MEAN PLATELET VOLUME 8.1 FL (7.0-11.0); MONO % 7.3 % (0.0-8.0); NEUT % 77.3 % (16.0-70.0); PLATELET COUNT 166 TH/MM3 (150-450); RED BLOOD COUNT 3.82 MIL/MM3 (4.00-5.30); RED CELL DISTRIBUTION WIDTH 12.7 % (11.6-17.2); WHITE BLOOD COUNT 13.1 TH/MM3 (4.0-11.0)
[2017-12-09 05:45] LABS: AMORPHOUS SEDIMENT, URINE RARE; BACTERIA, URINE RARE /hpf; BILIRUBIN, URINE NEG (NEG); BLOOD, URINE MOD (NEG); GLUCOSE,URINE NEG (NEG); KETONE, URINE 40 mg/dL (NEG); MUCUS URINE FEW /lpf (OCC); NITRITE,URINE NEG (NEG); SQUAMOUS EPITHELIAL CELL URINE 3 /hpf (0-5); TRANSITIONAL EPI CELLS, URINE <1 /hpf; URINE COLOR YELLOW (YELLW/STRAW); URINE LEUKOCYTE ESTERASE NEG (NEG)
[2017-12-09] MEDS ORDERED: fentaNYL 2MCG-BUPIV 0.125% INJ 150 ML EPIDURAL ONE (05:51)
[2017-12-09] MEDS ORDERED: LIDOCAINE 1.5%/EPINEPHrine 1:200,000 PF 5 ML AMP ONE (06:07)
[2017-12-09] MEDS ORDERED: DO NOT ADMINISTER ANTICOAGULANTS PRN (07:15)
[2017-12-09] MEDS ORDERED: NO SYSTEM NARCOTICS PRN (07:15)
[2017-12-09] MEDS ORDERED: ePHEDrine/NS 25 MG/5 ML SYRINGE IV PUSH PRN (07:15)
[2017-12-09] MEDS ORDERED: fentaNYL 2MCG-BUPIV 0.125% 150 ML EPIDURAL PRN (07:15)
--- NOTE | 2017-12-09 08:32 | PD.LABORPN ---
Subjective Subjective Patient reports poor relief with her epidural. Objective Objective Pelvic Exam: Cervix: [-] Dilatation: [-8] Effacement: [-90] Station: [-] Presentation: [-] Membranes: [Artificially ruptured with bloody fluid] Uterine Contractions: [Every 3-] FHT's: Category: [-1] Baseline: [-] Reactive: [-] Variability: [-] Decels: [-] Weeks Gestation: 36 Gest Age Assessed Date: Dec 09, 2017 Gest Age Assessed Time: 08:30 Pt started active labor?: Yes Active labor start date: Dec 09, 2017 Active labor start time: 07:00 Medical induction of labor?: No Artificial rupture of membrane: Yes Artificial ROM date: Dec 09, 2017 Artifical ROM time: 08:20 Assessment/Plan Assessment and Plan Assessment: Active labor, poor epidural effect, bloody amniotic fluid with category 1 heart rate Plan: Consult anesthesia for evaluation of epidural. Expect vaginal delivery Mikel Clark MD Dec 09, 2017 08:32
[2017-12-09] MEDS ORDERED: LIDOCAINE 2%/EPINEPHrine PF 1:200,000 20ML SDV ONE (09:17)
[2017-12-09] MEDS ORDERED: WITCH HAZEL 50%/GLYCERIN 12.5% 40 PAD JAR TOPICAL PRN (14:00)
[2017-12-09] MEDS ORDERED: OXYTOCIN 30 UNITS-500ML PREMIX 500 ML IV SCH (14:00)
[2017-12-09] MEDS ORDERED: oxyCODONE/ACETAMINOPHEN 5 MG/325 MG TAB PO PRN (14:00)
[2017-12-09] MEDS ORDERED: ACETAMINOPHEN 325 MG TAB PO PRN (14:00)
[2017-12-09] MEDS ORDERED: ONDANSETRON ODT 4 MG TAB PO PRN (14:00)
[2017-12-09] MEDS ORDERED: DOCUSATE SODIUM 50 MG/SENNA 8.6 MG TAB PO PRN (14:00)
[2017-12-09] MEDS ORDERED: ALUMINUM/MAGNESIUM/SIMETH 30 ML CUP PO PRN (14:00)
[2017-12-09] MEDS ORDERED: BENZOCAINE 20% TOPICAL SPRAY 60 ML CAN TOPICAL PRN (14:00)
[2017-12-09] MEDS ORDERED: SODIUM CHLORIDE 0.9% FLUSH 10 ML FLUSH IV FLUSH PRN (14:00)
--- NOTE | 2017-12-09 14:21 | PD.OB.DELI ---
Weeks gestation: 36 Gest age assessed date: Dec 09, 2017 Gest age assessed time: 08:30 Pt started active labor?: Yes Active labor start date: Dec 09, 2017 Active labor start time: 07:00 Medical induction of labor?: No Artificial rupture of membrane: Yes Artificial ROM date: Dec 09, 2017 Artifical ROM time: 08:20 Anesthesia: Epidural Episiotomy: None Vaginal Delivery: Normal, Spontaneous Presentation: Occiput posterior Nuchal Cord: None Delayed cord clamping (45 sec): Yes Infant: Female Delivery date: Dec 09, 2017 Delivery time: 13:36 One Minute : 8 Five Minute : 9 Weight: 7'12" Placenta: Spontaneous delivery, Intact Laceration: No lacerations Estimated blood loss: 400cc Jesus Landis Jr., MD Dec 09, 2017 14:21
[2017-12-09] MEDS: IBUPROFEN 800 MG TAB PO PRN (15:00)
[2017-12-09] MEDS ORDERED: MEASLES, MUMPS, RUBELLA VACCINE 0.5 ML VIAL SQ ONE (16:00)
[2017-12-09] MEDS ORDERED: DIPHTH/TETANUS/ACEL PERTUSSIS (BOOSTER) 0.5 ML VIAL/PFS IM ONE (16:00)
[2017-12-09] MEDS: oxyCODONE/ACETAMINOPHEN 5 MG/325 MG TAB PO PRN (19:56)
[2017-12-09] MEDS ORDERED: ZOLPIDEM TARTRATE 5 MG TAB PO PRN (21:00)
[2017-12-09] MEDS ORDERED: SODIUM CHLORIDE 0.9% FLUSH 10 ML FLUSH IV FLUSH SCH (21:00)
[2017-12-10] MEDS: oxyCODONE/ACETAMINOPHEN 5 MG/325 MG TAB PO PRN ×3 (03:16→14:24)
[2017-12-10] MEDS: IBUPROFEN 800 MG TAB PO PRN ×2 (03:16→14:24)
[2017-12-10 08:00] VITALS: BP 106/74; PULSE 82; RESP 18; TEMP 97.6; O2SAT 98
--- NOTE | 2017-12-10 10:38 | HHI.OB ---
Subjective Post Day: 1 Remarks day #1. AFVSS overnight. Pain minimal. Decreased lochia. Denies dysuria. No breast tenderness. She is feeding the baby via breast. Appetite good. No nausea or vomiting. Endorses flatus. No bowel movement. Ambulating well. Denies calf pain, shortness of breath, or cough. Otherwise, she is doing well this morning and has no other complaints. Objective Vitals/I&O Vital Signs Date Time Temp Pulse Resp B/P (MAP) Pulse Ox O2 Delivery O2 Flow Rate FiO2 12/10/17 08:00 97.6 82 18 106/74 (85) 98 Objective Remarks GENERAL: Well-nourished, well-developed patient. CARDIOVASCULAR: Regular rate and rhythm without murmurs, gallops, or rubs. RESPIRATORY: Breath sounds equal bilaterally. No accessory muscle use. ABDOMEN/GI: Abdomen soft, non-tender. Fundus: Firm, non-tender at umbilicus. GENITOURINARY: Light to moderate bleeding. EXTREMITIES: No cyanosis or edema, non-tender, without signs of DVT. Medications and IVs Current Medications Medications (Trade) Dose Ordered Sig/Roshni Route Start Time Stop Time Status Last Admin Lactated Ringer's 1,000 ml @ 125 mls/hr Q8H IV 12/09/17 05:06 12/09/17 05:06 Lactated Ringer's 1,000 ml @ 3,000 mls/hr Q20M PRN IV 12/09/17 05:06 Sodium Chloride 500 ml @ 1,000 mls/hr ONCE PRN IV 12/09/17 05:15 12/16/17 05:14 Sodium Chloride 1,000 ml @ 100 mls/hr Q10H PRN IV 12/09/17 05:26 (Xylocaine 1% Inj (50 ml)) 0.1 ml UNSCH X1 PRN I-DERMAL 12/09/17 05:15 12/12/17 05:14 (Bicitra Liq) 30 ml [employer] PO 12/09/17 05:15 12/13/17 05:14 (fentaNYL INJ) 50 mcg Q1H PRN IV PUSH 12/09/17 05:15 (fentaNYL INJ) 100 mcg Q1H PRN IV PUSH 12/09/17 05:15 (Xylocaine 1% Inj (50 ml)) 10 ml UNSCH X1 PRN INFIL 12/09/17 05:15 12/11/17 05:14 (Muri-Lube Oil) 10 ml UNSCH PRN TOPICAL 12/09/17 05:15 Fentanyl/ Bupivacaine/ Sodium Chlor 150 ml @ 0 mls/hr TITRATE PRN EPIDURAL 12/09/17 07:15 (NS Flush) 2 ml BID IV FLUSH 12/09/17 21:00 (NS Flush) 2 ml UNSCH PRN IV FLUSH 12/09/17 14:00 (Tylenol) 650 mg Q4H PRN PO 12/09/17 14:00 (Motrin) 800 mg Q8H PRN PO 12/09/17 14:00 12/10/17 03:16 (Percocet 5-325 Mg) 1 tab Q4H PRN PO 12/09/17 14:00 (Percocet 5-325 Mg) 2 tab Q4H PRN PO 12/09/17 14:00 12/10/17 08:38 (Americaine 20% Top Spr) 1 spray Q4H PRN TOPICAL 12/09/17 14:00 (Tucks Pads) 1 applic QID PRN TOPICAL 12/09/17 14:00 (Ca-Colace) 2 tab Q12H PRN PO 12/09/17 14:00 (Ambien) 5 mg HS PRN PO 12/09/17 21:00 (Mag-Al Plus Susp Liq) 15 ml Q8H PRN PO 12/09/17 14:00 (Zofran Odt) 4 mg Q6H PRN PO 12/09/17 14:00 Assessment/Plan Assessment and Plan 32y/o who is PPD#1 s/p . -Continue routine care. -Percocet and Motrin PRN pain. -Encouraged OOB. Advised pelvic rest for 6 wks. -Will need a f/u appt. within 6 wks. -Re: ctrl, she is undecided. -D/c\ today/tomorrow dw OB attending Gabriel Melchor MD R2 Dec 10, 2017 10:38
[2017-12-10] MEDS ORDERED: PERI PO (10:41)
[2017-12-10] MEDS ORDERED: IBUP1TAB7 PO (10:41)
--- NOTE | 2017-12-10 10:41 | HHI.DCPOC ---
Discharge Care Plan Diagnosis: (1) care following vaginal delivery Report Symptoms to Your Doctor -Temperature above 100.5 degrees -Redness, of incision or excessive or foul smelling drainage -Unusual pain or calf pain -Increased vaginal bleeding -Painful or difficulty urinating -Feelings of extreme sadness or anxiety after 2 weeks Goals to Promote Your Health * To prevent worsening of your condition and complications * To maintain your health at the optimal level Directions to Meet Your Goals Take your medications as prescribed Follow your dietary instruction Follow activity as directed Ensure plenty of rest for recovery Drink fluids for hydration Keep your appointments as scheduled Take your immunizations and boosters as scheduled If your symptoms worsen call your PCP, if no PCP go to Urgent Care Center or Emergency Room Smoking is Dangerous to Your Health. Avoid second hand smoke Call the 24-hour crisis hotline for domestic abuse at Gabriel Melchor MD R2 Dec 10, 2017 10:41
== END 2017-12-10 16:42 | disposition home or self-care (01) | DRG 775 ==
LOC: HOBED 03:09 → H2EA 04:36 → H1EA 15:50
PROVIDERS: ADMIT Obstetrics & Gynecology; ATTEND Obstetrics & Gynecology
PROC: 10E0XZZ Delivery of Products of Conception, External Approach (ICD-10-PCS; principal; 2017-12-09)
PROC: 10907ZC Drainage of Amniotic Fluid, Therapeutic from Products of Conception, Via Natural or Artificial Opening (ICD-10-PCS; 2017-12-09)
DX: O80 Encounter for full-term uncomplicated delivery (principal); Z37.0 Single live birth; Z3A.36 36 weeks gestation of pregnancy; Z88.0 Allergy status to penicillin; Z88.1 Allergy status to other antibiotic agents; Z88.2 Allergy status to sulfonamides
CPT/HCPCS: 59025; 80307; 81001; 85025; 86900; 86901; 90715; G0481; J7120